=== PATIENT | male | born 1970 | race Caucasian/White ===

== ENCOUNTER 2020-05-11 15:34 | Emergency (ER) | payer OTHER, SELFPAY ==
--- NOTE | ~2020-05-11 | XR_ITS ---
Indication: Trauma EXAMINATION: Left foot, left ankle. 3 views of the left foot do not demonstrate acute fracture or dislocation. 2 detail views of the left ankle do not demonstrate acute fracture or dislocation. Chronic changes are noted. XR/XR ankle LT min 3V IMPRESSION: Degenerative changes here but no evidence for an acute fracture or dislocation of left ankle or left foot on the imaging submitted.
--- NOTE | ~2020-05-11 | XR_ITS ---
Indication: Trauma EXAMINATION: Left foot, left ankle. 3 views of the left foot do not demonstrate acute fracture or dislocation. 2 detail views of the left ankle do not demonstrate acute fracture or dislocation. Chronic changes are noted. XR/XR foot LT 2V IMPRESSION: Degenerative changes here but no evidence for an acute fracture or dislocation of left ankle or left foot on the imaging submitted.
[2020-05-11 17:07] VITALS: BP 122/82; PULSE 96; RESP 18; TEMP 37.1; O2SAT 99; BMI 47.3
--- NOTE | 2020-05-11 17:09 | ED_ITS ---
HPI - Extremity Problem General Chief complaint: Extremity Injury, Lower Stated complaint: left foot injury Time Seen by Provider: 05/11/20 17:07 Related Data Allergies Allergy/AdvReac Type Severity Reaction Status Date / Time No Known Allergies Allergy Verified 05/11/20 17:07 [facility] Past Medical History Medical History Diabetic acidosis, type II Physical Exam Vital Signs: Vital Signs: Last Vital Signs Temp 97.5 F 05/11/20 19:00 Pulse 96 05/11/20 19:00 Resp 17 05/11/20 19:00 BP 140/88 H 05/11/20 19:00 Pulse Ox 95 05/11/20 19:00 Body Mass Index 47.3 Course Course Course Narrative: Presents to the ED for left foot pain due to metal falling on the foot. Rest of HPI, review of systems, and futher managment to be performed by ED clinical provider. foot xray ordered MDM - Extremity (Nontraumatic) Lab Data Labs: Lab Results 05/11/20 Range/Units 17:13 POC Glucose 102 (60-115) mg/dL Discharge Plan Discharge Clinical Impression: Contusion of foot Patient Disposition: Home, Self-Care Instructions: Foot Contusion (ED) Additional Instructions: Ice, elevation, Motrin for pain Postop shoe for walking with crutches with limited weight-bearing Follow-up with work connection at [phone] Referrals: [facility] [Primary Care Provider] - 2 days Stand Alone Forms: Work/School Release Interventions: ED Discharge Assessment Last Done: 05/11/20 19:52 Discharge Date/Time: 05/11/20 19:53
[2020-05-11 19:00] VITALS: BP 140/88; PULSE 96; RESP 17; TEMP 36.4; O2SAT 95
--- NOTE | 2020-05-11 19:20 | ED_ITS ---
HPI - Extremity Injury (Lower) General Chief Complaint: Extremity Injury, Lower Stated Complaint: left foot injury Time Seen by Provider: 05/11/20 17:07 Source: patient Mode of arrival: ambulatory Limitations: no limitations History of Present Illness HPI Narrative: 49-year-old male who is here with left foot pain. Patient tells me that he was at work when a large heavy object fell on his left foot causing pain. Related Data Allergies Allergy/AdvReac Type Severity Reaction Status Date / Time No Known Allergies Allergy Verified 05/11/20 17:07 Review of Systems Review of Systems: Yes all other systems are reviewed and are negative Constitutional: Constitutional: Reports no additional constitutional complaints, Denies body ache(s), Denies chills, Denies fever(s), Denies headache(s) and Denies weakness Eyes: Eyes: Reports no additional eye complaints and Denies change in vision ENT: Reports system reviewed and no additional complaints, except as documented, Denies dizziness, Denies headache(s), Denies nasal congestion, Denies nasal discharge and Denies neck pain Cardiovascular: Cardiovascular: Reports no additional cardiovascular complaints, Denies chest pain, Denies leg edema and Denies dyspnea Respiratory: Respiratory: Reports no additional respiratory complaints, Denies cough and Denies dyspnea Gastrointestinal: Gastrointestinal: Reports no additional gastrointestinal complaints, Denies abdominal pain, Denies diarrhea, Denies nausea and Denies vomiting Genitourinary: Genitourinary: Denies urinary incontinence Musculoskeletal: Musculoskeletal: Reports no additional musculoskeletal complaints, Denies back pain, Denies arthralgias, Reports joint swelling, Denies neck pain, Denies numbness and Denies tingling Integumentary/Breasts: Skin/Breast: Reports system reviewed and no additional complaints, except as docu and Denies rash Neurologic: Reports system reviewed and no additional complaints, except as documented, Denies Abnormal speech present, Denies dizziness, Denies headache(s), Denies numbness, Denies tingling and Denies weakness [facility] Past Medical History Attestation statement: The following information was validated with the patient. Source: old records reviewed and nursing notes reviewed Medical History Diabetic acidosis, type II Social History Social History Advance Directives: No Physical Exam Vital Signs: Vital Signs: Last Vital Signs Temp 97.5 F 05/11/20 19:00 Pulse 96 05/11/20 19:00 Resp 17 05/11/20 19:00 BP 140/88 H 05/11/20 19:00 Pulse Ox 95 05/11/20 19:00 Body Mass Index 47.3 Const: General: cooperative, healthy appearing, comfortable and no acute distress Orientation/consciousness: patient oriented x3 Limitations: no limitations HENMT: Head: Yes normal to inspection Ears: hearing grossly normal bilaterally General nose exam: Normal external nose present Face and sinus: Yes normal facial exam Mouth: Normal oral and palatal mucosa present Throat: Yes posterior oropharynx normal Eyes: General: appearance normal, both eyes and all related structures Pupils: Equal, round and reactive pupils present Neck: Neck: Yes normal visual inspection Chest: Chest palpation & inspection: normal inspection of the chest Resp: Effort & Inspection: normal respiratory effort Auscultation: clear to auscultation bilaterally Cardio: Rate: regular rate Rhythm: regular rhythm Peripheral pulses: Peripheral pulses 2+ throughout GI: Inspection: Yes normal to inspection Palpation (GI): Soft to palpation and nontender Auscultation: normal bowel sounds Back/Spine/Pelvis: Thoracic/Lumbar Spine: thoracic and lumbar spine normal to inspection Skin: General skin exam: no rashes or lesions noted Neuro: General: patient oriented x3, no focal motor deficits and normal sensation to monofilament Cranial nerves: Yes Equal, round and reactive pupils present Cognition (Neuro): normal cognition Speech: No Abnormal speech present Gait exam (Neuro): Normal gait present Motor exam (neuro): 5/5 motor strength present throughout Extrem: Other: Tenderness over the left dorsal foot with no obvious ecchymosis or swelling or deformity. Full range of motion of foot and ankle General: Yes normal to inspection Course Course Course Narrative: X-rays negative. Likely contusion. Patient placed in postop shoe. Has crutches at home. Recommended follow-up with work connection. Reviewed worrisome signs and symptoms of when to return to the emergency department. Comfortable discharge home. Procedures Procedure Narrative Procedure Narrative: Postop shoe left foot MDM - Extremity Injury (Lower) Medical Records Attestation: I reviewed the patient's medical records. Lab Data Attestation: I reviewed the patient's lab results. Imaging Data left foot/ankle xray: Attestation: I personally reviewed and interpreted this imaging study as follows: Radiologist's impression: cc: MADALYN SEGURA~ Indication: Trauma EXAMINATION: Left foot, left ankle. 3 views of the left foot do not demonstrate acute fracture or dislocation. 2 detail views of the left ankle do not demonstrate acute fracture or dislocation. Chronic changes are noted. XR/XR ankle LT min 3V IMPRESSION: Degenerative changes here but no evidence for an acute fracture or dislocation of left ankle or left foot on the imaging submitted. Discharge Plan Discharge Clinical Impression: Contusion of foot Qualifiers: Encounter type: initial encounter Laterality: left Qualified Code(s): S90.32XA - Contusion of left foot, initial encounter Patient Disposition: Home, Self-Care Instructions: Foot Contusion (ED) Additional Instructions: Ice, elevation, Motrin for pain Postop shoe for walking with crutches with limited weight-bearing Follow-up with work connection at [phone] Referrals: [facility] [Primary Care Provider] - 2 days Stand Alone Forms: Work/School Release Interventions: ED Discharge Assessment Last Done: 05/11/20 19:52 Discharge Date/Time: 05/11/20 19:53
[2020-05-11 21:36] LABS: Glucose, Whole Blood 102 mg/dL (60-115)
== END 2020-05-11 19:53 | disposition home or self-care (01) ==
PROVIDERS: Emergency Provider Emergency Medicine Emergency Medical Services
DX: S90.32XA Contusion of left foot, initial encounter (principal); W20.8XXA Other cause of strike by thrown, projected or falling object, initial encounter; E11.9 Type 2 diabetes mellitus without complications; Y93.89 Activity, other specified; Y92.9 Unspecified place or not applicable; Y99.0 Civilian activity done for income or pay
CPT/HCPCS: 73610; 73620; 82947; 99283; 99284

== ENCOUNTER → 2020-05-17 10:00 | Outpatient (BNVA) | payer OTHER, SELFPAY | PROVIDERS: Visit Provider Physician Assistant | DX: S97.82XD Crushing injury of left foot, subsequent encounter (principal); X58.XXXD Exposure to other specified factors, subsequent encounter | CPT/HCPCS: 99203 ==

== ENCOUNTER → 2020-05-24 15:22 | Outpatient (BNVA) | payer OTHER, SELFPAY | PROVIDERS: Visit Provider Physician Assistant | DX: S97.82XD Crushing injury of left foot, subsequent encounter (principal); X58.XXXD Exposure to other specified factors, subsequent encounter | CPT/HCPCS: 99213 ==

== ENCOUNTER → 2020-06-01 15:19 | Outpatient (BNVA) | payer OTHER, SELFPAY | PROVIDERS: Visit Provider Physician Assistant Medical | DX: S97.82XD Crushing injury of left foot, subsequent encounter (principal); X58.XXXD Exposure to other specified factors, subsequent encounter | CPT/HCPCS: 99213 ==

== ENCOUNTER → 2020-06-13 15:32 | Outpatient (BNVA) | payer OTHER, SELFPAY | PROVIDERS: Visit Provider Physician Assistant | DX: S97.82XD Crushing injury of left foot, subsequent encounter (principal); X58.XXXD Exposure to other specified factors, subsequent encounter | CPT/HCPCS: 99213 ==

== ENCOUNTER 2023-07-29 13:23 | Outpatient (REF) | payer BC, SELFPAY ==
--- NOTE | ~2023-07-29 | XR_ITS ---
EXAMINATION: XR HAND, RIGHT CLINICAL INFORMATION: 2nd digit nodule COMPARISON: None available. TECHNIQUE: PA, lateral, and oblique views of the right hand. FINDINGS: The bones and soft tissues are normal. No fracture. Alignment is anatomic. Joint spaces are maintained. No erosions or soft tissue calcifications. XR/XR hand RT min 3V IMPRESSION: Normal right hand. No exostosis, radiopaque foreign body, or cortical erosion in the area of palpable concern. Consider further evaluation with ultrasound.
== END 2023-07-29 13:24 | disposition home or self-care (01) ==
LOC: HO.HHCX 13:23
PROVIDERS: Visit Provider Registered Nurse
DX: R22.31 Localized swelling, mass and lump, right upper limb (principal)
CPT/HCPCS: 73130

== ENCOUNTER 2023-08-21 14:41 | Outpatient (REF) | payer BC, SELFPAY ==
--- NOTE | ~2023-08-21 | US_ITS ---
EXAMINATION: US EXTREMITY, NONVASCULAR CLINICAL INFORMATION: Flesh tone nodule over proximal interphalangeal joint of the index finger. COMPARISON: None available. TECHNIQUE: High-frequency linear ultrasound transducer with a standoff pad was used to examine the area of clinical concern. FINDINGS: There is a 1.0 x 0.7 x 0.7 cm rounded, hypoechoic/anechoic mass seen with increased through transmission in the site of the visible abnormality on the dorsal surface of the finger at the PIP joint. US/US extremity nonvascular IMPRESSION: The mass seen is most consistent with a digital mucous cyst/ganglion cyst.
== END 2023-08-21 14:42 | disposition home or self-care (01) ==
LOC: HO.US 14:41
PROVIDERS: PCP Registered Nurse; Visit Provider Registered Nurse
DX: R22.31 Localized swelling, mass and lump, right upper limb (principal)
CPT/HCPCS: 76882

== ENCOUNTER 2024-03-27 11:07 | Outpatient (REF) | payer BC, SELFPAY ==
--- OUTSIDE RECORDS SUMMARY | 2024-03-27 12:02 | XMS_ITS | Clinical Summary ---
Author Organization [employer] Address [address] [place] [address] [address] [place] [address] Care Team Providers Care Food Assembler Name Role Phone Che Melendez [facility] Primary Care Provider [phone] Allergies No known active allergies Medications zoster vaccine-recom binant adjuvanted (Shingrix) 50 MCG/0.5ML vaccine inject 0.5 milliliter by intramuscular route once 11/17/19 22 Active glucose blood (FREESTYLE LITE) test strip Use 1 by To Skin route 3 times every day 12/03/19 20 Active cholecalcifer ol (Vitamin D-3) 50 MCG (1999 UT) tablet TAKE 1 TABLET BY MOUTH EVERY DAY 11/17/19 22 Active empagliflozin (Jardiance) 10 MGIndications :Diabetes mellitus type 2 in obese Take 1 tablet (10 mg) by mouth in the morning. 30 tablet 11 08/29/19 23 Active rosuvastatin (Crestor) 20 MG tabletIndicat ions:Type 2 diabetes mellitus with hyperglycemia , without long-term current use of insulin (CMS/[facility]) Take 1 tablet (20 mg) by mouth in the evening. 30 tablet 11 08/08/19 24 025 Active glipiZIDE (Glucotrol) 10 MG tablet TAKE 1 TABLET BY MOUTH TWICE DAILY BEFORE A MEAL 180 tablet 3 11/29/19 24 Active Tirzepatide (Mounjaro) 7.5 MG/0.5ML solution auto-injector Indications:T ype 2 diabetes mellitus with hyperglycemia , without long-term current use of insulin (CMS/HCC) Inject 7.5 mg under the skin 1 (one) time per week. 2 mL 3 02/18/19 25 026 Active metFORMIN (Glucophage) 1000 MG tablet TAKE 1 TABLET BY MOUTH TWICE DAILY WITH THE MORNING AND EVENING MEAL 180 tablet 1 03/23/19 25 Active metFORMIN (Glucophage) 1000 MG tablet TAKE 1 TABLET BY MOUTH TWICE DAILY WITH THE MORNING AND EVENING MEAL 180 tablet 12/27/19 24 025 Discontinued Active Problems Problem Noted Date Diagnosed Date Healthcare maintenance 03/02/2022 Overview (03/02/2022): C-Scope: Cologuard ordered 02/2022 PSA: 11/2021 .27 HCV Screen: Neg 11/2021 HIV Screen: Neg 11/2021 STI Screening: Neg 11/2021 Dental Care: Discuss at follow up Assessment & Plan (04/16/2023 11:41 AM EST): Declines all vaccines Will reach out to manager interventional re cologuard not arriving. Assessment & Plan (12/18/2022 8:06 PM EST): ?? Declines flu/covid/PCV20 ?? States will go to pharmacy for shingles ?? Needs new cologuard kit. Will reorder today Class 3 severe obesity due t o excess calories with serious comorbidity and body mass index (BMI) of 45.0 to 49.9 in adult 03/02/2022 Overview (03/02/2022): ?? Encouraged regular aerobic exercise within initial goal of 30 minute walk 3x/week ?? Encouraged balanced diet with a variety of fruits, vegetables, and lean meats. Vitamin D deficiency 02/21/2022 Obstructive sleep apnea syndrome 01/16/2021 Overview (03/02/2022): ?? Sx improved after tonsillectomy ?? No longer has CPAP Assessment & Plan (03/02/2022 6:52 PM EST): ?? Suspect some degree of persistent sleep apnea ?? Will order home sleep study and follow up pending results Type 2 diabetes mellitus wit h hyperglycemia, without long-term current use of insulin 03/14/2017 Overview (08/08/2023): Glipizide 10mg b.i.d before meals Trulicity 4.5mg SQ weekly Metformin 1000mg b.i.d - Unable to tolerate jardiance (infection) Maintenance & Treatment Goals: A1c goal: <7% FBG goal: <130 2 hour post-prandial goal: <180. Eye Exam: Referred to [facility] care 11/2021 Foot Exam: 07/2023 Risk 0 DERRICK/ARB: No STATIN: No ASA: No Assessment & Plan (04/16/2023 11:39 AM EST): Lab Results Component Value Date HGBA1C 7.5 (A) 03/29/2023 STOP jardiance Will initiate PA for mounjaro START daily statin for primary prevention per ADA recommendation. Reviewed administration, risks, side effects Most common side effects include diarrhea and upset stomach. Avoid grapefruit juice while taking this medication. Rare but serious side effects include hepatic inflammation and myopathy. Contact health center immediately if experiencing muscle weakness or signs of liver dysfunction including yellowing of the skin or eyes, dark colored urine, or stomach pain that does not improve. Assessment & Plan (12/18/2022 8:09 PM EST): Lab Results Component Value Date HGBA1C 8.3 (A) 12/03/2022 ?? Discuss patient concerns re jardiance s/e. Pt agrees that benefits outweigh risks at this time ?? Will START previously rx'd jardiance 10mg ?? Declines referral to nutrition at this time. States that if BS remains elevated at follow up will be open to referral at this time Assessment & Plan (08/30/2022 5:34 PM EDT): Lab Results Component Value Date HGBA1C 8.5 (A) 08/28/2022 A1c increased. Patient reports drinking more energy drinks and elecrolyte drinks over the summer START jardiance 10mg daily. Reviewed administration, risks, side effects Assessment & Plan (06/05/2022 2:11 PM EDT): Lab Results Component Value Date HGBA1C 7.9 (A) 05/22/2022 ?? Continue current regimen, focus on lifestyle changes ?? Routine labs ordered ?? Follow up 3 months Assessment & Plan (03/02/2022 6:51 PM EST): ?? A1c increase d/t diet over holiday season ?? INCREASE trulicity to 4mg subcutaneous weekly ?? Plan to repeat labs at follow up Resolved Problems Problem Noted Date Diagnosed Date Resolved Date Pain in left foot 01/16/2021 03/02/2022 Encounters Date Type Department Care Team Description 03/22/2024 Refill [facility] [address] [place] [address] Concepcoin Farrell MD 02/19/2024 10:30 AM EST Office Visit [address] [address] [place] F[place] Encounter for preventative adult health care examination (Primary Dx); Type 2 diabetes mellitus with hyperglycemia, without long-term current use of insulin (CMS/[facility]); Obstructive sleep apnea syndrome; Class 3 severe obesity due to excess calories with serious comorbidity and body mass index (BMI) of 45.0 to 49.9 in adult (CMS/[facility]); Dietary counseling; Exercise counseling 02/19/2024 Travel 02/11/2024 Patient Outreach [facility] [address] [place] [address] [place] [facility] Pre-visit Planning (SDOH negative, Tobacco screening negative. ) 01/23/[address] [address] [place] [facility] Med Refill 01/23/2024 Refill [facility] [address] [place] [address] [place] [facility] Type 2 diabetes mellitus with hyperglycemia, without long-term current use of insulin ([facility]) 12/27/2023 Refill [facility] [address] [place] [address] [place] [facility] Type 2 diabetes mellitus with obesity (CMS/HCC) ([facility]) from Last 3 Months Immunizations Name Administration Dates Next Due Influenza injectable quadriv alent IIV4 with preservative 02/24/2015 Pneumococcal Conjugate PCV 13 02/24/2015 Tdap 09/19/2020 Social History Tobacco Use Types Packs/Day Years Used Date Smoking Tobacco: Never Smokeless Tobacco: Never Tobacco Cessation:Counseling Given: Not Answered Alcohol Use Standard Drinks/Week Comments Never 0 (1 standard drink = 0.6 oz pur e alcohol) Depression Answer Date Recorded Patient Health Questionnaire-9 Score 8 03/29/2023 Patient Health Questionnaire-9 Score 8 03/29/2023 Last PHQ-9: Questionnaire Data Not on file 0 03/29/2023 Housing Stability Answer Date Recorded What is your housing situation today? I have mildred florence 02/11/[address] you li ve. Do you have problems with any of the following? None of the above 02/11/2024 Food Insecurity Answer Date Recorded Within the past 12 months, y ou worried that your food would run out before you got money to buy more: Never True 02/11/2024 Within the past 12 months,th e food you bought just didn't last and you didn't have enough money to get more: Never True Transportation Answer Date Recorded In the past 12 months, has l ack of transportation kept you from medical appts, meetings, work or from getting things needed for daily living? No 02/11/2024 Utilities Answer Date Recorded In the past 12 months, has t he electric, gas, oil or water company threatened to shut off services in your home? No 02/11/2024 Depression Answer Date Recorded Patient Health Questionnaire-2 Score 2 03/29/2023 Internet Access Answer Date Recorded Internet Access Q1 Yes 02/11/2024 Internet Access Q2 Not on file 02/11/2024 Sex and Gender Information Value Date Recorded Sex Assigned at Male 12/11/2021 10:29 AM EDT Legal Sex Male 10:29 AM EDT Gender Identity Male 12/11/2021 10:29 AM EDT Sexual Orientation Straight 12/11/2021 10 :29 AM EDT Last Filed Vital Signs Vital Sign Reading Time Taken Comments Blood Pressure 121/70 02/19/2024 11:21 AM EST Pulse 97 02/19/2024 11:21 AM EST Temperature 36.6 ??C (97.8 ??F) 02/19/2024 11:[address] Respiratory Rate 20 02/19/2024 11:21 AM EST Oxygen Saturation 98% 02/19/2024 11:21 AM EST Inhaled Oxygen Concentration - - Weight 145 kg (320 lb) 02/19/2024 11:21 AM EST Height 177.8 cm (5' 10 ) 02/19/2024 11:21 AM EST Body Mass Index 45.92 02/19/2024 11:21 AM EST Plan of Treatment Upcoming Encounters Date Type Department Care Team (Late st Contact Info) Description 05/22/2024 11:15 AM EDT Office Visit [facility] [address] [place] [address] [place], [place], [facility] [address] [place] [address] Health Maintenance Due Date Last Done Comments CT Colonography 1970 Colonoscopy 1970 Colorectal Cancer Screening 1970 FIT DNA/Cologuard 1970 FIT 1970 FOBT 1970 Sigmoidoscopy 1970 Eye Exam 1980 Hepatitis B Vaccines (1 of 3 - 19+ 3-dose series) 1989 Pneumococcal Vaccine: 50+ Years (2 of 2 - PPSV23) 04/21/2015 02/24/2015 Zoster Vaccines (1 of 2) 2020 Diabetes: Urine Protein Screening 05/23/2023 05/22/2022, 11/16/2021, 09/08/2020, Additional history exists Lipid Panel 05/23/2023 05/22/2022, 1007/2021, 09/08/2020, Additional history exists COVID-19 Vaccine ( season) 2023 02/06/2022, 07/07/2020, 06/09/2020 Influenza Vaccine (#1) 2023 02/24/2015 Alcohol/Substance Use Screening 03/29/2024 03/29/2023 Depression Screening 03/29/2024 03/29/2023, 03/29/19 24 Diabetes: Hemoglobin A1C 05/19/2024 025, 07/29/2023, 03/29/2023, Additional history exists Diabetes: Foot Exam 07/28/2024 07/29/2023, 07/29/2023, 05/22/2022, Additional history exists SDOH Screening 02/10/2025 02/11/2024 Tobacco Screening 02/19/2025 02/20/2024 DTaP/Tdap/Td Vaccines (2 - Td or Tdap) 09/19/2030 09/19/2020 RSV Patients and Patients Aged 60 years or older (1 - 1-dose 75+ series) 2045 HIV Screening Discontinued 11/16/2021, 03/23/2021 Hepatitis C Screening Discontinued 11/16/2021, 022 HIB Vaccines Aged Out No longer eligi ble based on patient's age to complete this topic HPV Vaccines Aged Out No longer eligi ble based on patient's age to complete this topic Hepatitis A Vaccines Aged Out No long er eligible based on patient's age to complete this topic IPV Vaccines Aged Out No longer eligi ble based on patient's age to complete this topic Meningococcal Vaccine Aged Out No elsa sebastián eligible based on patient's age to complete this topic RSV under 20 months Aged Out No longe r eligible based on patient's age to complete this topic Rotavirus Vaccines Aged Out No longer eligible based on patient's age to complete this topic Procedures Procedure Name Priority Date/Time Associated Diagnosis Comments POCT GLYCATED HEMOGLOBIN, TOTAL Routine 02/19/2024 11:25 AM EST Type 2 diabetes mellitus with hyperglycemia, without long-term current use of insulin (CMS/HCC) POCT GLUCOSE Routine 02/19/2024 11:24 AM EST Type 2 diabetes mellitus with hyperglycemia, without long-term current use of insulin (CMS/HCC) ALBUMIN, RANDOM URINE W/O CREATININE Routine 05/22/2022 3:59 PM EDT Diabetes mellitus type 2 in obese (CMS/HCC) LIPID PANEL, STANDARD Routine 05/22/2022 3:59 PM EDT Diabetes mellitus type 2 in obese (CMS/HCC) ZZZ HISTORICAL HEPATITIS C AB W/REFL TO HCV RNA, QN, PCR Routine 11/16/2021 2:36 PM EDT HIV 1/2 ANTIGEN/ANTIBODY, FOURTH GENERATION W/RFL Routine 11/16/2021 2:36 PM EDT from Last 3 Months or Most Recently Relevant to Health Maintenance Results * (ABNORMAL) POCT HGB A1C (02/19/2024 11:25 AM EST) Pathologist [facility] Hemoglobin A1C 7.6(A) 4.0 - 6.0 % QC Media Lot # [id number] Lot# Expiration Date 644 Blood 02/19/2024 11:2 5 AM EST [facility] POINT OF CARE TEST ENTER/EDIT ORDERABLES Final Result * (ABNORMAL) POCT Glucose (02/19/2024 11:24 AM EST) Pathologist [facility] Glucose Blood, POC 243(A) 60 - 200 mg/dL QC Media Lot # [id number] Lot# Expiration Date 507,025 Blood Capillary blood specimen / Unknown 02/19/2024 11:24 AM EST [facility] POINT OF CARE TEST ENTER/EDIT ORDERABLES Final Result * Albumin, Random Urine W/O Creatinine (05/22/2022 3:59 PM EDT) Pathologist [facility] Albumin, Urine 1.9 See Note: mg/dL [facility] [place] [email or web address] Comment: Reference Range: Reference Range Not established [employer] [place] [email or web address] Comment: The ADA defines abnormalities in albumin excretion as follows: Albuminuria Category ? Result (mcg/mg creatinine) Normal to Mildly increased ?<30 Moderately increased ?30-299 Severely increased ?> OR = 300 The ADA recommends that at least two of three specimens collected within a 3-6 month period be abnormal before considering a patient to be within a diagnostic category. Urine Urine specimen obtained by clean catch procedure / Unknown 05/22/2022 3:59 PM EDT 05/22/2022 3:59 PM EDT Narrative [facility] - 05/23/2022 6:48 PM EDT FASTING:NO FASTING: NO [facility] LAB URINE ORDERABLES Final Re sult [facility] [address], [place] [address] [employer] [place] [email or web address] [address] [place] [address] * Lipid Panel, Standard (05/22/2022 3:59 PM EDT) Cholesterol, Total 137 <200 mg/dL [facility] [place] [email or web address] HDL Cholesterol 47 > OR = 40 mg/dL [facility] [place] [email or web address] Triglycerides 131 <150 mg/dL [employer] [place] [email or web address] LDL Cholesterol 69 mg/dL (calc) [employer] [place] [email or web address] Comment: Reference range: <100 Desirable range <100 mg/dL for primary prevention; ?? <70 mg/dL for patients with CHD or diabetic patients with > or = 2 CHD risk factors. LDL-C is now calculated using the Rafael-Tato calculation, which is a validated novel method providing better accuracy than the Friedewald equation in the estimation of LDL-C. Rafael RANDLE et al. FRED. 2013;310(19): 4364-8622 (http://education.BladeLogic.ZenDeals/faq/BVC935) Chol/HDLC Ratio 2.9 <5.0 (calc) [employer] [place] [facility] Non-HDL Cholesterol 90 <130 mg/dL (calc) [place] Comment: For patients with diabetes plus 1 major ASCVD risk factor, treating to a non-HDL-C goal of <100 mg/dL (LDL-C of <70 mg/dL) is considered a therapeutic option. Blood Venous blood specimen / Unknown 05/22/2022 3:59 PM EDT 05/22/2022 3:59 PM EDT Narrative [facility] - 05/23/2022 6:48 PM EDT FASTING:NO FASTING: NO [facility] LAB BLOOD ORDERABLES Final Re sult [facility] [address] [facility], [place] [address] [facility] [address] [place] [address] * HEPATITIS C AB W/REFL TO HCV RNA, QN, PCR (11/16/2021 2:36 PM EDT) HEPATITIS C ANTIBODY NON-REACTI VE NON-REACT JAN CONVERTED LEGACY LABS INDEX 0.10 <1.00 CONVERTED LEGACY LABS Comment: ?? HCV antibody was non-reactive. There is no laboratory ?? evidence of HCV infection. ?? In most cases, no further action is required. However, if recent HCV exposure is suspected, a test for HCV RNA (test code 11172) is suggested. ?? For additional information please refer to http://education.Ultora/faq/JEY03n1 (This link is being provided for informational/ educational purposes only.) ?? 11/16/2021 2:36 PM EDT [facility] Final Result CONVERTED LEGACY LABS * HIV 1/2 ANTIGEN/ANTIBODY,FOURTH GENERATION W/RFL (11/16/2021 2:36 PM EDT) HIV-1/2 ANTIGEN AND ANTIBODIES, 4TH GENERATION W/ REFLEX NON-REACT JAN NON-REACT JAN CONVERTED LEGACY LABS Comment: HIV-1 antigen and HIV-1/HIV-2 antibodies were not detected. There is no laboratory evidence of HIV infection. ?? PLEASE NOTE: This information has been disclosed to you from records whose confidentiality may be protected by state law. ??If your state requires such protection, then the state law prohibits you from making any further disclosure of the information without the specific written consent of the person to whom it pertains, or as otherwise permitted by law. A general authorization for the release of medical or other information is NOT sufficient for this purpose. ? For additional information please refer to http://education.Ultora/faq/AAN629 (This link is being provided for informational/ educational purposes only.) ? The performance of this assay has not been clinically validated in patients less than 2 years old. ?? 11/16/2021 2:36 PM EDT [facility] LAB BLOOD ORDERABLES Final Re sult CONVERTED LEGACY LABS from Last 3 Months or Most Recently Relevant to Health Maintenance Insurance [facility] PPO Care Teams Food Assembler Relationship Specialty Start Date End Date [facility] [address] [place] [id number] PCP - General Family Medicine 10/05/21
--- OUTSIDE RECORDS SUMMARY | 2024-03-27 12:02 | XMS_ITS | Encounter Summary ---
Author Organization [employer] Address [address] [place] [address] 7 [place] [address] Care Team Providers Care Laundry Tech Name Role Phone [place] [facility] Primary Care Provider Reason for Visit * Reason Comments Med Refill Encounter Details Date Type Department Care Team ([facility] st Contact Info) Description 11/28/2022 Refill [facility] [address] [place], [place] [phone] [place] [facility] [address] [place] [address] Diabetes mellitus type 2 in obese (CMS/HCC) Social History Tobacco Use Types Packs/Day Years Used Date Smoking Tobacco: Never Smokeless Tobacco: Never Alcohol Use Standard Drinks/Week Comments Never 0 (1 standard drink = 0.6 oz pur e alcohol) Depression Answer Date Recorded Patient Health Questionnaire-9 Score 0 02/21/2022 Housing Stability Answer Date Recorded What is your housing situation today? I have mildred florence 11/28/[address] you li ve. Do you have problems with any of the following? None of the above 11/28/2022 Food Insecurity Answer Date Recorded Within the past 12 months, y ou worried that your food would run out before you got money to buy more: Never True 11/28/2022 Within the past 12 months,th e food you bought just didn't last and you didn't have enough money to get more: Never True Transportation Answer Date Recorded In the past 12 months, has l ack of transportation kept you from medical appts, meetings, work or from getting things needed for daily living? No 11/28/2022 Utilities Answer Date Recorded In the past 12 months, has t he electric, gas, oil or water company threatened to shut off services in your home? No 11/28/2022 Depression Answer Date Recorded Patient Health Questionnaire-2 Score 0 02/21/2022 Sex and Gender Information Value Date Recorded Sex Assigned at Male 12/11/2021 10:29 AM EDT Legal Sex Male 10:29 AM EDT Gender Identity Male 12/11/2021 10:29 AM EDT Sexual Orientation Straight 12/11/2021 10 :29 AM EDT documented as of this encounter Plan of Treatment Upcoming Encounters Date Type Department Care Team (Late st Contact Info) Description 05/22/2024 11:15 AM EDT Office Visit [facility] MEDICINE [address] [place] [address] Che Melendez FNP [address] [place] [address] documented as of this encounter Visit Diagnoses Diagnosis Diabetes mellitus type 2 in obese Type II or unspecified type diabetes mellitus without mention of complication, not stated as uncontrolled documented in this encounter Additional Health Concerns Assessment Noted Time PHQ-9 Depression Total Score: 0 02/21/19 23 3:04 PM EST documented as of this encounter Care Teams Laundry Tech Relationship Specialty Start Date End Date Che Melendez FNP [address] [place] [address] PCP - General Family Medicine 10/05/21 documented as of this encounter
--- OUTSIDE RECORDS SUMMARY | 2024-03-27 12:02 | XMS_ITS | Encounter Summary ---
Author Organization [employer] Address [address] [place] [address] Care Team Providers Care Sr. Manager Marketing Name Role Phone Che Melendez Primary Care Provider [phone] Encounter Details Date Type Department Care Team (Late st Contact Info) Description 02/07/2022 Telephone [facility] MEDICINE [address] [place] [address] Che Melendez FNP [address] [place] [address] Social History Tobacco Use Types Packs/Day Years Used Date Smoking Tobacco: Never Assessed Sex and Gender Information Value Date Recorded Sex Assigned at Male 12/11/2021 10:29 AM EDT Legal Sex Male 10:29 AM EDT Gender Identity Male 12/11/2021 10:29 AM EDT Sexual Orientation Straight 12/11/2021 10 :29 AM EDT documented as of this encounter Plan of Treatment Upcoming Encounters Date Type Department Care Team (Late st Contact Info) Description 05/22/2024 11:15 AM EDT Office Visit [facility] [address] [place] [address] Che Melendez FNP [address] [place] [address] documented as of this encounter Visit Diagnoses Not on filedocumented in this encounter Care Teams Sr. Manager Marketing Relationship Specialty Start Date End Date Che Melendez FNP [address] [place] [phone] PCP - General Family Medicine 10/05/21 documented as of this encounter
--- OUTSIDE RECORDS SUMMARY | 2024-03-27 12:02 | XMS_ITS | Encounter Summary ---
Author Organization [employer] Address [address] [place] [address] [address] [place] [address] Care Team Providers Care Semiconductor Dies Loader Name Role Phone [place] [facility] Primary Care Provider [phone] Reason for Visit * Reason Onset Date Comments Med Refill 01/23/2024 Encounter Details Date Type Department Care Team ([facility] st Contact Info) Description 01/23/2024 Telephone [facility] MEDICINE [address] [place], [place] [phone] [place] [facility] [address] [place] [address] Med Refill Social History Tobacco Use Types Packs/Day Years [...] Recorded Patient Health Questionnaire-2 Score 2 03/29/2023 Sex and Gender Information Value Date Recorded Sex Assigned at Male 12/11/2021 10:29 AM EDT Legal Sex Male 10:29 AM EDT Gender Identity Male 12/11/2021 10:29 AM EDT Sexual Orientation Straight 12/11/2021 10 :29 AM EDT documented as of this encounter Miscellaneous Notes * Telephone Encounter - Archana Brewster LPN - 01/23/2024 10:34 AM EST Medication pended to PCP. * Telephone Encounter - [place] - 01/23/2024 10:30 AM EST TC from pt requesting medication refill. Medications needing refill : Tirzepatide (Mounjaro) 5 MG/0.5ML solution pen-injector To be sent to: [id number] [place] [address] [address] AT [facility] DEAN[facility] documented in this encounter Plan of Treatment Upcoming Encounters Date Type Department Care Team (Late st Contact Info) Description 05/22/2024 11:15 AM EDT Office Visit [facility] MEDICINE [address] [place] [address] Che Melendez FNP [address] [place] [address] documented as of this encounter Visit Diagnoses Not on filedocumented in this encounter Additional Health Concerns Assessment Noted Time PHQ-9 Depression Total Score: 8 03/29/19 24 1:25 PM EST documented as of this encounter Care Teams Semiconductor Dies Loader Relationship Specialty Start Date End Date Nora DREW Bolton [address] [place] [address] PCP - General Family Medicine 10/05/21 documented as of this encounter
--- OUTSIDE RECORDS SUMMARY | 2024-03-27 12:02 | XMS_ITS | Encounter Summary ---
Author Organization [employer] Address [address] [facility] 7 [place] [address] Care Team Providers Care Site Worker Name Role Phone [place] [facility] Primary Care Provider [phone] Reason for Visit * Reason Comments Med Refill Encounter Details Date Type Department Care Team ([facility] st Contact Info) Description 11/29/2022 Refill [facility] [address] [place], [place] [phone] [facility] [address] [place] [address] Social History Tobacco Use Types Packs/Day Years Used Date Smoking Tobacco: Never Smokeless Tobacco: Never Alcohol Use Standard Drinks/Week Comments Never 0 (1 standard drink = 0.6 oz pur e alcohol) Depression Answer Date Recorded Patient Health Questionnaire-9 Score 0 12/03/2022 Patient Health Questionnaire-9 Score 0 12/03/2022 Last PHQ-9: Questionnaire Data Not on file 1 Housing Stability Answer Date Recorded What is [...] Date Recorded Patient Health Questionnaire-2 Score 0 12/03/2022 Sex and Gender Information Value Date Recorded Sex Assigned at Male 12/11/2021 10:29 AM EDT Legal Sex Male 10:29 AM EDT Gender Identity Male 12/11/2021 10:29 AM EDT Sexual Orientation Straight 12/11/2021 10 :29 AM EDT documented as of this encounter Plan of Treatment Upcoming Encounters Date Type Department Care Team (Late st Contact Info) Description 05/22/2024 11:15 AM EDT Office Visit [facility] [address] [place] [address] Che Melendez FNP [address] [place] [address] documented as of this encounter Visit Diagnoses Not on filedocumented in this encounter Additional Health Concerns Assessment Noted Time PHQ-9 Depression Total Score: 0 02/21/19 23 3:04 PM EST documented as of this encounter Care Teams Site Worker Relationship Specialty Start Date End Date Che Melendez FNP [address] [place] [address] PCP - General Family Medicine 10/05/21 documented as of this encounter
--- OUTSIDE RECORDS SUMMARY | 2024-03-27 12:02 | XMS_ITS | Encounter Summary ---
Author Organization [employer] Address [address] [facility] [address] [place] [address] Care Team Providers Care Quill Cleaning Machine Operator Name Role Phone Che Melendez CLINICAL WRITER Primary Care Provider Reason for Visit * Reason Comments Med Refill Encounter Details Date Type Department Care Team ([facility] st Contact Info) Description 03/22/2024 Refill [facility] [address] [place], [place] [phone] Concepcion Farrell MD [address] [place] [address] Social History Tobacco Use Types Packs/Day Years [...] Description 05/22/2024 11:15 AM EDT Office Visit [facility] [address] [place] [address] Che Melendez FNP [address] [place] [address] documented as of this encounter Visit Diagnoses Not on filedocumented in this encounter Additional Health Concerns Assessment Noted Time PHQ-9 Depression Total Score: 8 03/29/19 24 1:25 PM EST documented as of this encounter Care Teams Quill Cleaning Machine Operator Relationship Specialty Start Date End Date Che Melendez FNP [address] [place] [address] PCP - General Family Medicine 10/05/21 documented as of this encounter
[2024-03-27 13:41] LABS: Creatinine Urine 80.05 mg/dL; Microalbum/Creatinine Ratio Ur 7.4 ug/mg cr (<30)
[2024-03-27 13:54] LABS: Cholesterol 82 mg/dL (<200); HDL Cholesterol 40 mg/dL (>40); LDL Cholesterol Calculated 32 mg/dL (<100); Triglycerides 52 mg/dL (<150)
[2024-03-27 14:06] LABS: Prostate Specific Antigen 0.27 ng/mL (<0.05-4.0)
== END 2024-03-27 11:08 | disposition home or self-care (01) ==
LOC: HO.HHCL 11:07
PROVIDERS: Visit Provider Registered Nurse
DX: Z00.00 Encounter for general adult medical examination without abnormal findings (principal); E11.65 Type 2 diabetes mellitus with hyperglycemia; Z12.5 Encounter for screening for malignant neoplasm of prostate
CPT/HCPCS: 36415; 80061; 82043; 82570; 84153